=== PATIENT | female | born 1945 | race Caucasian/White ===

== ENCOUNTER 2017-05-06 15:09 | Inpatient (IN) | payer OTHER ==
[~2017-05-06] VITALS: Ht 160 cm; Wt 96.2 kg
[2017-05-06 15:36] LABS: BASO % 0 % (0-3); EOS % 2 % (0-3); HEMATOCRIT 46.2 % (36.0-47.0); HEMOGLOBIN 15.6 g/dL (12.0-15.5); LYMPH # 2.4 x10^3/uL (1.0-4.8); LYMPH % 25 % (24-48); MEAN CORPUSCULAR HEMOGLOBIN 30 pg (25-35); MEAN CORPUSCULAR HGB CONC 34 g/dL (31-37); MEAN CORPUSCULAR VOLUME 88 fL (79-100); MONO % 11 % (0-9); NEUT % 62 % (31-73); PLATELET COUNT 221 x10^3/uL (140-400); RED BLOOD COUNT 5.26 x10^6/uL (3.50-5.40); RED CELL DISTRIBUTION WIDTH 16.1 % (11.5-14.5); WHITE BLOOD COUNT 9.7 x10^3/uL (4.0-11.0)
[2017-05-06 15:51] LABS: CALCIUM 9.3 mg/dL (8.5-10.1); CREATININE 0.7 mg/dL (0.6-1.0); GFR 82.7; POTASSIUM 3.7 mmol/L (3.5-5.1)
--- NOTE | 2017-05-06 15:52 | RAD ---
EXAM: Chest one view. HISTORY: Chest pain. COMPARISON: None. FINDINGS: A frontal view of the chest is obtained. There are no confluent infiltrates. There is no pneumothorax or pleural effusion. The heart is not enlarged. There are atherosclerotic calcifications of the aorta. IMPRESSION: 1. No confluent infiltrates.
--- NOTE | 2017-05-06 15:55 | PHYS DOC ---
Past Medical History Past Medical History: Depression, GERD, High Cholesterol, Other Additional Past Medical Histor: DDD, PRE-DIABETIC, BILATERAL CAROTID ARTERY DISEASE, OA Past Surgical History: Appendectomy, Cholecystectomy, , Hysterectomy, Knee Replacement, Other Additional Past Surgical Histo: PARTIAL THYROID REMOVAL, L ROTATOR CUFF, R SHOULDER, EARDRUM SX Alcohol Use: Occasionally Drug Use: None Adult General Chief Complaint Chief Complaint: CHEST PAIN HPI HPI Patient is a 72 year old female who presents with chest pain that goes to her right shoulder that started on Saturday lasted intermittently all day long she became short of breath with this and diaphoretic. He states yesterday the pain went away and then today has been intermittent again. She's are primary care physician who wanted her to be seen in the emergency department. Here she has some burning sensation again this occurred. She does have a history of smoking and stopped back in 1975. She also has dyslipidemia. And a family history both parents with coronary disease. She's never had a stress test. Review of Systems Review of Systems Constitutional: Denies fever or chills [] Eyes: Denies change in visual acuity, redness, or eye pain [] HENT: Denies nasal congestion or sore throat [] Respiratory: Denies cough or shortness of breath [] Cardiovascular: No additional information not addressed in HPI [] GI: Denies abdominal pain, nausea, vomiting, bloody stools or diarrhea [] : Denies dysuria or hematuria [] Musculoskeletal: Denies back pain or joint pain [] Integument: Denies rash or skin lesions [] Neurologic: Denies headache, focal weakness or sensory changes [] Endocrine: Denies polyuria or polydipsia [] Allergies Allergies Allergies Coded Allergies Type Severity Reaction Last Updated Verified sulfamethoxazole Allergy Mild HIVES 05/06/17 Yes trimethoprim Allergy Mild HIVES 05/06/17 Yes Physical Exam Physical Exam Constitutional: Well developed, well nourished, no acute distress, non-toxic appearance. [] HENT: Normocephalic, atraumatic, bilateral external ears normal, oropharynx moist, no oral exudates, nose normal. [] Eyes: PERRLA, EOMI, conjunctiva normal, no discharge. [] Neck: Normal range of motion, no tenderness, supple, no stridor. [] Cardiovascular:Heart rate regular rhythm, no murmur [] Lungs & Thorax: Bilateral breath sounds clear to auscultation [] Abdomen: Bowel sounds normal, soft, no tenderness, no masses, no pulsatile masses. [] Skin: Warm, dry, no erythema, no rash. [] Back: No tenderness, no CVA tenderness. [] Extremities: No tenderness, no cyanosis, no clubbing, ROM intact, no edema. [] Neurologic: Alert and oriented X 3, normal motor function, normal sensory function, no focal deficits noted. [] Psychologic: Affect normal, judgement normal, mood normal. [] Current Patient Data Vital Signs Vital Signs Date Time Temp Pulse Resp B/P (MAP) Pulse Ox O2 Delivery O2 Flow Rate FiO2 05/06/17 15:30 97.9 67 16 161/86 (111) 98 Room Air 97.9 Lab Values Laboratory Tests Test 05/06/17 15:20 White Blood Count 9.7 x10^3/uL (4.0-11.0) Red Blood Count 5.26 x10^6/uL (3.50-5.40) Hemoglobin 15.6 g/dL (12.0-15.5) H Hematocrit 46.2 % (36.0-47.0) Mean Corpuscular Volume 88 fL (79-100) Mean Corpuscular Hemoglobin 30 pg (25-35) Mean Corpuscular Hemoglobin Concent 34 g/dL (31-37) Red Cell Distribution Width 16.1 % (11.5-14.5) H Platelet Count 221 x10^3/uL (140-400) Neutrophils (%) (Auto) 62 % (31-73) Lymphocytes (%) (Auto) 25 % (24-48) Monocytes (%) (Auto) 11 % (0-9) H Eosinophils (%) (Auto) 2 % (0-3) Basophils (%) (Auto) 0 % (0-3) Neutrophils # (Auto) 6.0 x10^3uL (1.8-7.7) Lymphocytes # (Auto) 2.4 x10^3/uL (1.0-4.8) Monocytes # (Auto) 1.0 x10^3/uL (0.0-1.1) Eosinophils # (Auto) 0.2 x10^3/uL (0.0-0.7) Basophils # (Auto) 0.0 x10^3/uL (0.0-0.2) Prothrombin Time 12.5 SEC (11.7-14.0) Prothrombin Time INR 1.0 (0.8-1.1) Sodium Level 140 mmol/L (136-145) Potassium Level 3.7 mmol/L (3.5-5.1) Chloride Level 103 mmol/L (98-107) Carbon Dioxide Level 27 mmol/L (21-32) Anion Gap 10 (6-14) Blood Urea Nitrogen 17 mg/dL (7-20) Creatinine 0.7 mg/dL (0.6-1.0) Estimated GFR (Cockcroft-Gault) 82.7 Glucose Level 103 mg/dL (70-99) H Calcium Level 9.3 mg/dL (8.5-10.1) Magnesium Level 2.1 mg/dL (1.8-2.4) Total Bilirubin 1.1 mg/dL (0.2-1.0) H Direct Bilirubin 0.2 mg/dL (0.0-0.2) Aspartate Amino Transferase (AST) 18 U/L (15-37) Alanine Aminotransferase (ALT) 26 U/L (14-59) Alkaline Phosphatase 98 U/L (46-116) Creatine Kinase 54 U/L (26-192) Creatine Kinase MB (Mass) 0.5 ng/mL (0.0-3.6) Creatine Kinase MB Relative Index 0.9 % (0-4) Troponin I Quantitative < 0.017 ng/mL (0.000-0.055) RO-Mla-N-Type Natriuretic Peptide 111 pg/mL (0-124) Total Protein 7.9 g/dL (6.4-8.2) Albumin 3.9 g/dL (3.4-5.0) Lipase 192 U/L (73-393) Thyroid Stimulating Hormone (TSH) 0.435 uIU/mL (0.358-3.74) Laboratory Tests 05/06/17 15:20 Laboratory Tests 05/06/17 15:20 EKG EKG EKG shows sinus rhythm rate 66 beats were without any ST elevations or T-wave inversions appreciated, right bundle branch morphology noted, left axis deviation, QTC 457 ms, as interpreted by me. Radiology/Procedures Radiology/Procedures [facility] [address] [place] [address] IMAGING REPORT Signed PATIENT: RODNEY RAMOS ACCOUNT: [id number] : 1945 LOCATION: ER AGE: 72 SEX: F EXAM STATUS: REG ER ORD. PHYSICIAN: ROXANNE BUCKNER MD REASON: chest pain PROCEDURE: PORTABLE CHEST 1V EXAM: Chest one view. HISTORY: Chest pain. COMPARISON: None. FINDINGS: A frontal view of the chest is obtained. There are no confluent infiltrates. There is no pneumothorax or pleural effusion. The heart is not enlarged. There are atherosclerotic calcifications of the aorta. IMPRESSION: 1. No confluent infiltrates. DICTATED and SIGNED BY: BARNEY ROGER MD DATE: 05/06/17 1549 CC: ROXANNE BUCKNER MD; BERTRAND RICE MD ~ Impressions: Chest pain Depression Dyslipidemia Course & Med Decision Making Course & Med Decision Making Pertinent Labs and Imaging studies reviewed. (See chart for details) EKG does not show any acute abnormalities. First set of troponins are negative. Patient is being admitted to Dr. whitt in stable condition at this time. Interim orders have been written. Patient has been given a full dose aspirin. Dragon Disclaimer Dragon Disclaimer This electronic medical record was generated, in whole or in part, using a voice recognition dictation system. Departure Departure Referrals: BERTRAND RICE MD (PCP) ROXANNE BUCKNER MD May 06, 2017 15:54
[2017-05-06 15:58] LABS: PROTHROMBIN TIME PATIENT 12.5 SEC (11.7-14.0)
[2017-05-06 16:00] LABS: ALBUMIN 3.9 g/dL (3.4-5.0); DIRECT BILIRUBIN 0.2 mg/dL (0.0-0.2); MAGNESIUM 2.1 mg/dL (1.8-2.4); TOTAL BILIRUBIN 1.1 mg/dL (0.2-1.0); TOTAL PROTEIN 7.9 g/dL (6.4-8.2)
[2017-05-06 16:01] LABS: CKMB MASS 0.5 ng/mL (0.0-3.6)
--- NOTE | 2017-05-06 16:10 | ACF ---
Admit Criteria Forms Admit Criteria Forms Admit Criteria Forms CHEST PAIN Clinical Indications for Admission to Inpatient Care (Place 'X' for any and all applicable criteria): Admission is indicated for chest pain and ANY ONE of the following(1)(2)(3)(4)(5 ): [ ]I. Angina with acute coronary syndrome (Also use Myocardial Infarction or Angina guideline) [ ]II. Hemodynamic instability [ ]III. Angina needing acute intervention as indicated by ALL of the following( 11)(12): [ ]a) Unstable angina is present as indicated by angina that is ANY ONE of the following: [ ]i) New onset [ ]ii) Nocturnal [ ]iii) Prolonged at rest [ ]iv) Progressive [ ]b) Angina warrants acute intervention as indicated by ANY ONE of the following: [ ]i) Recurrent angina (e.g, not responding as previously to treatment) [ ]ii) Angina at rest or with low-level activities despite initial medical therapy [ ]iii) New or presumably new ST-segment depression on ECG [ ]iv) Signs or symptoms of heart failure (eg, dyspnea, pulmonary edema) [ ]v) New or worsening mitral regurgitation [ ]vi) Hemodynamic instability [ ]vii) Dangerous arrhythmia (eg, sustained ventricular tachycardia) [ ]viii) History of percutaneous coronary intervention within 6 months [ ]ix) History of coronary artery bypass graft surgery [ ]x) ROHINI risk score of 2 or greater[A] [ ]xi) History of Diabetes(14) [ ]xii) High-risk cardiac ischemia findings on noninvasive testing (e.g, echocardiogram, treadmill testing, nuclear scan) [ ]xiii) Chronic renal insufficiency (ie, estimated GFR less than 60 mL/min/1.732m) [ ]xiv) Left ventricular ejection fraction less than 40% [ ]IV. Evidence of NM (eg, cardiac biomarkers positive, ST-segment elevation on ECG) also use Myocardial Infarction Criteria Form. [ ]V. Pulmonary edema [ ]. Respiratory distress [ ]VII. Chest pain indicative of serious diagnosis other than coronary artery disease (eg, aortic dissection) [ ]VIII. Contraindications and/or Inappropriate clinical situations for Observational Care in patients with Chest Pain, when ANY ONE of the following is required: [ ]a) Patient with risk factor for pulmonary embolism, acute coronary syndrome and myocardial infarction (18) [ ]b) Patient with Pulmonary embolism require an average LOS of 4.3 days, therefore emergency department observation management is inappropriate 18,23 [ ]c) Painful condition/s in the elderly, have the highest rate of recidivism after emergency department observation management (10.8%) 20,21,22 [ ]d) Elevated cardiac biomarker requires intensive and exhaustive care (19) [X]IX. General contraindications and/or Inappropriate clinical situations for Observational Care in patients with Chest Pain, when ANY ONE of the following is required: [X]a) Prediction of prolongation of LOS based on ANY ONE of the following may be considered as a contraindication for observational care 2, 3, 4, 5, 6, 7, 8, 9, 10, 11 [X]i) Age > 65 yrs. [ ]ii) Patient arriving by ambulance [ ]iii) Patient with high acuity [ ]iv) Patient requiring vital sign monitoring [ ]v) Patient on IV medication [ ]b) Systolic blood pressures 180mmHg 3,12 [ ]c) Patient with altered mental status including delirium and other alteration of consciousness, (3) [ ]d) Patient whose discharge disposition will be to a residential home or rehabilitation home should not be managed in Emergency Department Observation Unit. CMS rule requires 3 days hospital stay before such placement. 3,13 [ ]e) Patient with failure to thrive due to broad array of etiologies 3,16,17 [ ]f) Inability to ambulate 3,14 Extended stay beyond goal length of stay may be needed for (1)(28): [ ]a) Specific condition diagnosed after evaluation (eg, pulmonary embolism, aortic dissection) [ ]b) Unstable angina [ ]c) Continued suspicion of acute coronary syndrome with inability to complete needed cardiac evaluation (eg, patient clinically unable to undergo stress testing) [ ]d) Myocardial infarction (Contents from ANGINA and CHEST PAIN clinical indications for admission to inpatient care have been integrated in this form) The original [employer] content created by [employer] has been revised. The portions of the content which have been revised are identified through the use of italic text or in bold, and [facility] has neither reviewed nor approved the modified material. All other unmodified content is copyright [facility]. Please see references footnoted in the original [facility] edition 2016 PAUL BESS May 06, 2017 16:10
[2017-05-06] MEDS ORDERED: ASPIRIN 325 MG TABLET PO ONE (17:45)
[2017-05-06] MEDS ORDERED: MORPHINE SULFATE 2 MG/ML DISP.SYRIN. IV PRN (17:45)
[2017-05-06] MEDS ORDERED: ONDANSETRON PF 4 MG/2 ML VIAL. IV PRN (17:45)
[2017-05-06] MEDS ORDERED: NITROGLYCERIN SUBLINGUAL 0.4 MG BOTTLE OF 25. SL PRN (17:45)
[2017-05-06] MEDS ORDERED: SIMV40TA3 PO (18:45)
[2017-05-06] MEDS ORDERED: FLUO40CA2 PO (18:45)
[2017-05-06] MEDS ORDERED: ASPI-482 PO (18:45)
[2017-05-06] MEDS ORDERED: METF500T9 PO (18:45)
[2017-05-06 19:00] VITALS: BP 143/77
--- NOTE | 2017-05-06 20:13 | PDOC1 ---
History and Physical Date of Admission Date of Admission DATE: 05/06/17 TIME: 20:10 Identification/Chief Complaint Chief Complaint chest pain w. nausea Problems: Source Source: Chart review, Patient History of Present Illness History of Present Illness Ms. Inman, is a 72 year old female, admit from ER with chest pain that goes to her right shoulder. New pain, 2 days and intermittent, pain 6/10, and with some nausea and diaphoresis. At times, some shortness of breath. She was sent here by Dr. Santos for above complaints.\ . She's never had a stress test. Past Medical History Cardiovascular: Hyperlipidemia Pulmonary: No pertinent hx GI: No pertinent hx Heme/Onc: No pertinent hx Endocrine: Other (pre-DM) Dermatology: No pertinent hx Family History Family History: Heart Disease (mitral valve repair, both parents) Social History Smoke: Quit ALCOHOL: none Drugs: None Current Medications Current Medications Current Medications Aspirin (Eugene Aspirin) 325 mg 1X ONCE PO Last administered on 05/06/17t 17:52 ; Start 05/06/17 at 17:45; Stop 05/06/17 at 17:46; Status DC Ondansetron HCl (Zofran) 4 mg PRN Q8HRS PRN IV NAUSEA/VOMITING; Start 05/06/17 at 17:45; Stop 05/07/17 at 17:44 Morphine Sulfate 2 mg PRN Q2HR PRN IV PAIN; Start 05/06/17 at 17:45; Stop 05/07 at 17:44 Nitroglycerin (Nitrostat) 0.4 mg PRN Q5MIN PRN SL CHEST PAIN; Start 05/06/17 at 17:45; Stop 05/07/17 at 17:44 Aspirin (Ecotrin) 81 mg DAILY PO ; Start 05/07/17 at 09:00 Metformin HCl (Glucophage Xr) 500 mg DAILYWBKFT PO ; Start 05/07/17 at 08:00 Simvastatin (Zocor) 40 mg HS PO ; Start 05/06/17 at 21:00 Fluoxetine HCl (PROzac) 40 mg DAILY PO ; Start 05/07/17 at 09:00 Active Scripts Active Reported Simvastatin 40 Mg Tablet 40 Mg PO HS Fluoxetine Hcl 40 Mg Capsule 40 Mg PO DAILY at Bed time Metformin Hcl Er (Metformin Hcl) 500 Mg Tab.er.24h 500 Mg PO DAILYWBKFT at Bed time Aspir 81 (Aspirin) 81 Mg Tablet. 1 Tab PO DAILY At bed time Allergies Allergies: Coded Allergies: sulfamethoxazole (Verified Allergy, Mild, HIVES, 05/06/17) trimethoprim (Verified Allergy, Mild, HIVES, 05/06/17) ROS General: No: Chills, Night Sweats, Fatigue, Malaise, Appetite, Other PSYCHOLOGICAL ROS: No: Anxiety, Behavioral Disorder, Concentration difficultie , Decreased libido, Depression, Disorientation, Hallucinations, Hostility, Irritablity, Memory difficulties, Mood Swings, Obsessive thoughts, Physical abuse, Sexual abuse, Sleep disturbances, Suicidal ideation, Other Eyes: No Blurry vision, No Decreased vision, No Double vision, No Dry eyes, No Excessive tearing, No Eye Pain, No Itchy Eyes, No Loss of vision, No Photophobia , No Scotomata, No Uses contacts, No Uses glasses, No Other HEENT: YES: Heacaches, No: Visual Changes, Hearing change, Nasal congestion, Nasal discharge, Oral lesions, Sinus pain, Sore Throat, Epistaxis, Sneezing, Snoring, Tinnitus, Vertigo, Vocal changes, Other Respiratory: YES: SOB with excertion, No: Cough, Hemoptysis, Orthopnea, Pleuritic Pain, Shortness of breath, Sputum Changes, Stridor, Tachypnea, Wheezing, Other Cardiovascular: yes Chest Pain, yes Other, No Palpitations, No Orthopnea, No Paroxysmal Noc. Dyspnea, No Edema, No Lt Headedness Gastrointestinal: Yes Nausea, No Vomiting, No Abdominal Pain, No Diarrhea, No Constipation, No Melena, No Hematochezia, No Other Genitourinary: No Dysuria, No Frequency, No Incontinence, No Hematuria, No Retention, No Discharge, No Urgency, No Pain, No Flank Pain, No Other, No , No , No , No , No , No , No Musculoskeletal: Yes Joint Pain, Yes Joint Stiffness (knees), No Gait Disturbance, No Joint Swelling, No Muscle Pain, No Muscular Weakness , No Pain In:, No Swelling In:, No Other Neurological: No Behavorial Changes, No Bowel/Bladder ControlChng, No Confusion , No Dizziness, No Gait Disturbance, No Headaches, No Impaired Coord/balance, No Memory Loss, No Numbness/Tingling, No Seizures, No Speech Problems, No Tremors, No Visual Changes, No Weakness, No Other Skin: No Dry Skin, No Eczema, No Hair Changes, No Lumps, No Mole Changes, No Mottling, No Nail Changes, No Pruritus, No Rash, No Skin Lesion Changes, No Other, No Acne Physical Exam General: Alert, Oriented X3, Cooperative HEENT: Atraumatic, PERRLA Lungs: Clear to auscultation Abdomen: Normal bowel sounds, Soft (obese) Extremities: No clubbing, No edema, Normal pulses Skin: No significant lesion Neuro: Normal speech, Normal tone, Sensation intact, Cranial nerves 3-12 NL Psych/Mental Status: Mental status NL, Mood NL Vitals Vitals Vital Signs Date Time Temp Pulse Resp B/P (MAP) Pulse Ox O2 Delivery O2 Flow Rate FiO2 05/06/17 17:59 65 20 163/83 (109) 98 Room Air 05/06/17 15:30 97.9 97.9 Labs Labs Laboratory Tests Test 05/06/17 15:20 05/06/17 18:14 White Blood Count 9.7 x10^3/uL (4.0-11.0) Red Blood Count 5.26 x10^6/uL (3.50-5.40) Hemoglobin 15.6 g/dL (12.0-15.5) Hematocrit 46.2 % (36.0-47.0) Mean Corpuscular Volume 88 fL (79-100) Mean Corpuscular Hemoglobin 30 pg (25-35) Mean Corpuscular Hemoglobin Concent 34 g/dL (31-37) Red Cell Distribution Width 16.1 % (11.5-14.5) Platelet Count 221 x10^3/uL (140-400) Neutrophils (%) (Auto) 62 % (31-73) Lymphocytes (%) (Auto) 25 % (24-48) Monocytes (%) (Auto) 11 % (0-9) Eosinophils (%) (Auto) 2 % (0-3) Basophils (%) (Auto) 0 % (0-3) Neutrophils # (Auto) 6.0 x10^3uL (1.8-7.7) Lymphocytes # (Auto) 2.4 x10^3/uL (1.0-4.8) Monocytes # (Auto) 1.0 x10^3/uL (0.0-1.1) Eosinophils # (Auto) 0.2 x10^3/uL (0.0-0.7) Basophils # (Auto) 0.0 x10^3/uL (0.0-0.2) Prothrombin Time 12.5 SEC (11.7-14.0) Prothromb Time International Ratio 1.0 (0.8-1.1) Sodium Level 140 mmol/L (136-145) Potassium Level 3.7 mmol/L (3.5-5.1) Chloride Level 103 mmol/L (98-107) Carbon Dioxide Level 27 mmol/L (21-32) Anion Gap 10 (6-14) Blood Urea Nitrogen 17 mg/dL (7-20) Creatinine 0.7 mg/dL (0.6-1.0) Estimated GFR (Cockcroft-Gault) 82.7 Glucose Level 103 mg/dL (70-99) Calcium Level 9.3 mg/dL (8.5-10.1) Magnesium Level 2.1 mg/dL (1.8-2.4) Total Bilirubin 1.1 mg/dL (0.2-1.0) Direct Bilirubin 0.2 mg/dL (0.0-0.2) Aspartate Amino Transf (AST/SGOT) 18 U/L (15-37) Alanine Aminotransferase (ALT/SGPT) 26 U/L (14-59) Alkaline Phosphatase 98 U/L (46-116) Creatine Kinase 54 U/L (26-192) Creatine Kinase MB (Mass) 0.5 ng/mL (0.0-3.6) Creatine Kinase MB Relative Index 0.9 % (0-4) Troponin I Quantitative < 0.017 ng/mL (0.000-0.055) < 0.017 ng/mL (0.000-0.055) RI-Lsq-D-Type Natriuretic Peptide 111 pg/mL (0-124) Total Protein 7.9 g/dL (6.4-8.2) Albumin 3.9 g/dL (3.4-5.0) Lipase 192 U/L (73-393) Thyroid Stimulating Hormone (TSH) 0.435 uIU/mL (0.358-3.74) Laboratory Tests Test 05/06/17 15:20 05/06/17 18:14 White Blood Count 9.7 x10^3/uL (4.0-11.0) Red Blood Count 5.26 x10^6/uL (3.50-5.40) Hemoglobin 15.6 g/dL (12.0-15.5) Hematocrit 46.2 % (36.0-47.0) Mean Corpuscular Volume 88 fL (79-100) Mean Corpuscular Hemoglobin 30 pg (25-35) Mean Corpuscular Hemoglobin Concent 34 g/dL (31-37) Red Cell Distribution Width 16.1 % (11.5-14.5) Platelet Count 221 x10^3/uL (140-400) Neutrophils (%) (Auto) 62 % (31-73) Lymphocytes (%) (Auto) 25 % (24-48) Monocytes (%) (Auto) 11 % (0-9) Eosinophils (%) (Auto) 2 % (0-3) Basophils (%) (Auto) 0 % (0-3) Neutrophils # (Auto) 6.0 x10^3uL (1.8-7.7) Lymphocytes # (Auto) 2.4 x10^3/uL (1.0-4.8) Monocytes # (Auto) 1.0 x10^3/uL (0.0-1.1) Eosinophils # (Auto) 0.2 x10^3/uL (0.0-0.7) Basophils # (Auto) 0.0 x10^3/uL (0.0-0.2) Prothrombin Time 12.5 SEC (11.7-14.0) Prothromb Time International Ratio 1.0 (0.8-1.1) Sodium Level 140 mmol/L (136-145) Potassium Level 3.7 mmol/L (3.5-5.1) Chloride Level 103 mmol/L (98-107) Carbon Dioxide Level 27 mmol/L (21-32) Anion Gap 10 (6-14) Blood Urea Nitrogen 17 mg/dL (7-20) Creatinine 0.7 mg/dL (0.6-1.0) Estimated GFR (Cockcroft-Gault) 82.7 Glucose Level 103 mg/dL (70-99) Calcium Level 9.3 mg/dL (8.5-10.1) Magnesium Level 2.1 mg/dL (1.8-2.4) Total Bilirubin 1.1 mg/dL (0.2-1.0) Direct Bilirubin 0.2 mg/dL (0.0-0.2) Aspartate Amino Transf (AST/SGOT) 18 U/L (15-37) Alanine Aminotransferase (ALT/SGPT) 26 U/L (14-59) Alkaline Phosphatase 98 U/L (46-116) Creatine Kinase 54 U/L (26-192) Creatine Kinase MB (Mass) 0.5 ng/mL (0.0-3.6) Creatine Kinase MB Relative Index 0.9 % (0-4) Troponin I Quantitative < 0.017 ng/mL (0.000-0.055) < 0.017 ng/mL (0.000-0.055) AR-Urn-K-Type Natriuretic Peptide 111 pg/mL (0-124) Total Protein 7.9 g/dL (6.4-8.2) Albumin 3.9 g/dL (3.4-5.0) Lipase 192 U/L (73-393) Thyroid Stimulating Hormone (TSH) 0.435 uIU/mL (0.358-3.74) VTE Prophylaxis Ordered VTE Prophylaxis Devices: No VTE Pharmacological Prophylaxi: Yes Assessment/Plan Assessment/Plan chest pain, possible angina, consult CV to follow may benefit from stress test hyperlipids obesity, BMI 36 pre-DM2, she reports taking metformin for prevention depression, JOON Santana MD May 06, 2017 20:12
[2017-05-06 20:24] VITALS: BP 143/77
[2017-05-06] MEDS ORDERED: SIMVASTATIN 40 MG TABLET. PO SCH (21:00)
[2017-05-06] MEDS ORDERED: FLUoxetine HCL 20 MG CAPSULE PO SCH (21:30)
[2017-05-06 23:14] VITALS: BP 139/82
[2017-05-07 02:46] VITALS: BP 134/77
[2017-05-07 05:57] LABS: BASO % 0 % (0-3); EOS % 3 % (0-3); HEMATOCRIT 43.3 % (36.0-47.0); HEMOGLOBIN 14.9 g/dL (12.0-15.5); LYMPH % 26 % (24-48); MEAN CORPUSCULAR HEMOGLOBIN 30 pg (25-35); MEAN CORPUSCULAR HGB CONC 34 g/dL (31-37); MEAN CORPUSCULAR VOLUME 86 fL (79-100); MONO % 11 % (0-9); NEUT % 60 % (31-73); PLATELET COUNT 194 x10^3/uL (140-400); RED BLOOD COUNT 5.02 x10^6/uL (3.50-5.40); RED CELL DISTRIBUTION WIDTH 16.1 % (11.5-14.5); WHITE BLOOD COUNT 7.6 x10^3/uL (4.0-11.0)
--- NOTE | 2017-05-07 06:10 | EKG ---
[facility] [address] [place] [address] Test Date: 2017-05-06 Test Time: 15:16:52 Pat Name: RODNEY RAMOS Department: Room: 538 1 Gender: F Carpet Cleaner: : 1945 Requested By: ROXANNE BUCKNER Order Number: [id number] Reading MD: Umer Baxter Measurements Intervals [place] Rate: 66 P: 0 [place]: 164 QRS: -18 QRSD: 130 T: -32 QT: 434 QTc: 457 Interpretive Statements SINUS RHYTHM LEFT ATRIAL ABNORMALITY LEFTWARD AXIS RIGHT BUNDLE BRANCH BLOCK Electronically Signed On 05-07-2017 9:41:23 CDT by Umer Baxter
[2017-05-07 06:11] LABS: CREATININE 0.7 mg/dL (0.6-1.0); GFR 82.7; POTASSIUM 3.9 mmol/L (3.5-5.1)
[2017-05-07 06:26] LABS: CHOLESTEROL/HDL RATIO 3.2
[2017-05-07 07:00] VITALS: BP 144/82
[2017-05-07] MEDS ORDERED: metFORMIN XR 500 MG TAB.ER.24H PO SCH (08:00)
[2017-05-07] MEDS ORDERED: FLUoxetine HCL 20 MG CAPSULE PO SCH ×2 (09:00→21:00)
[2017-05-07] MEDS ORDERED: ASPIRIN ENTERIC COATED 81 MG TABLET.DR. PO SCH (09:00)
--- NOTE | 2017-05-07 09:55 | PDOC2 ---
PHIL CRUMP MANAGER DOMESTIC 05/07/17 0955: CARDIAC CONSULT DATE OF CONSULT Date of Consult DATE: 05/07/17 TIME: 09:39 REASON FOR CONSULT Reason for Consult: Chest pain REFERRING PHYSICIAN Referring Physician: Ernie SOURCE Source: Chart review, Patient HISTORY OF PRESENT ILLNESS HISTORY OF PRESENT ILLNESS This is a pleasant 72 yo female admitted for complains of chest pain. Reports in the last week she has been feeling more fatigue. Saturday, the entire day, she has been having intermittent sensation of mid chest to left chest fullness which sometimes sensation of sharpness. This then would radiate to right arm and feeling of metallic taste. Positive for nausea, feeling clammy and diaphoretic at times. Denies any palpitations or SOA. This happened one time Saturday then again yesterday. She did went to her outpt PCP yesterday and was told to go ahead and go to the hospital. Denies any recent falls, injury. No recent long distance travel. Denies any CAD, arrhythmias. In addition to her symptoms she did start having some heartburn as well Saturday. She does take ASA 81 mg daily but denies any PPI or H2 kamila. use. Denies any routine NSAID therapy. PAST MEDICAL HISTORY Cardiovascular: HTN (med taken off yrs ago since her BP has been better (was on atenolol in the past)), Hyperlipidemia, Other (Carotid artery disease) Pulmonary: No pertinent hx CENTRAL NERVOUS SYSTEM: Carpal Tunnel Syndrome, Other (concussion in the past from fall. ) GI: GERD Heme/Onc: Other (DVT left LLE with anticoagulation therapy post LT1991) Hepatobiliary: No pertinent hx Psych: Anxiety Musculoskeletal: Osteoarthritis Rheumatologic: No pertinent hx Infectious disease: No pertinent hx ENT: Other ([place]FOR[place]K, bilateral ear drum destruction from [place] complications as a child) Renal/: UTI Endocrine: Diabetes (preDM) Dermatology: No pertinent hx PAST SURGICAL HISTORY Past Surgical History: Appendectomy, Arthroscopy (bilateral RTC repair), Cholecystectomy, (x2), Total knee replacement (left), Hysterectomy, Colectomy, Other (Thyroid cyst removal; carpal tunnel repair to right wrist; left hand repair; bilateral ear drum replacement) FAMILY HISTORY Family History: Heart Disease (mitral valve disease, mother and father due to Rheumatic fever) SOCIAL HISTORY Smoke: No (quit in 1977 5 pk yr) ALCOHOL: other (2 shots of rum daily) Drugs: None Lives: with Family CURRENT MEDICATIONS CURRENT MEDICATIONS Current Medications Medications (Trade) Dose Ordered Sig/Maria Luisa Route PRN Reason Start Time Stop Time Status Last Admin Dose Admin Aspirin (Eugene Aspirin) 325 mg 1X ONCE PO 05/06/17 17:45 05/06/17 17:46 DC 05/06/17 17:52 Aspirin (Ecotrin) 81 mg DAILY PO 05/07/17 09:00 05/07/17 09:07 Simvastatin (Zocor) 40 mg HS PO 05/06/17 21:00 05/06/17 20:56 Fluoxetine HCl (PROzac) 40 mg QHS PO 05/06/17 21:30 05/06/17 21:25 ALLERGIES ALLERGIES: Coded Allergies: sulfamethoxazole (Verified Allergy, Mild, HIVES, 05/06/17) trimethoprim (Verified Allergy, Mild, HIVES, 05/06/17) ROS Review of System 14 point ROS evaluated with pertinent positives noted per HPI PHYSICAL EXAM General: Alert, Oriented X3, Cooperative, No acute distress HEENT: Atraumatic, Mucous membr. moist/pink Lungs: Clear to auscultation, Normal air movement Heart: Regular rate (SR with RBBB), Normal S1, Normal S2, Other (2/6 systolic murmur to LLS border) Abdomen: Soft, No tenderness Extremities: No cyanosis, No edema Skin: No breakdown, No significant lesion Neuro: Normal speech, Sensation intact Psych/Mental Status: Mental status NL, Mood NL MUSCULOSKELETAL: Osteoarthritic changes both hands VITALS VITALS Vital Signs Date Time Temp Pulse Resp B/P (MAP) Pulse Ox O2 Delivery O2 Flow Rate FiO2 05/07/17 08:00 Room Air 05/07/17 07:00 97.7 64 17 144/82 (102) 96 97.7 LABS Lab: Laboratory Tests Test 05/06/17 15:20 05/06/17 18:14 05/06/17 20:56 05/07/17 05:30 White Blood Count 9.7 x10^3/uL (4.0-11.0) 7.6 x10^3/uL (4.0-11.0) Red Blood Count 5.26 x10^6/uL (3.50-5.40) 5.02 x10^6/uL (3.50-5.40) Hemoglobin 15.6 g/dL (12.0-15.5) 14.9 g/dL (12.0-15.5) Hematocrit 46.2 % (36.0-47.0) 43.3 % (36.0-47.0) Mean Corpuscular Volume 88 fL (79-100) 86 fL (79-100) Mean Corpuscular Hemoglobin 30 pg (25-35) 30 pg (25-35) Mean Corpuscular Hemoglobin Concent 34 g/dL (31-37) 34 g/dL (31-37) Red Cell Distribution Width 16.1 % (11.5-14.5) 16.1 % (11.5-14.5) Platelet Count 221 x10^3/uL (140-400) 194 x10^3/uL (140-400) Neutrophils (%) (Auto) 62 % (31-73) 60 % (31-73) Lymphocytes (%) (Auto) 25 % (24-48) 26 % (24-48) Monocytes (%) (Auto) 11 % (0-9) 11 % (0-9) Eosinophils (%) (Auto) 2 % (0-3) 3 % (0-3) Basophils (%) (Auto) 0 % (0-3) 0 % (0-3) Neutrophils # (Auto) 6.0 x10^3uL (1.8-7.7) 4.5 x10^3uL (1.8-7.7) Lymphocytes # (Auto) 2.4 x10^3/uL (1.0-4.8) 2.0 x10^3/uL (1.0-4.8) Monocytes # (Auto) 1.0 x10^3/uL (0.0-1.1) 0.8 x10^3/uL (0.0-1.1) Eosinophils # (Auto) 0.2 x10^3/uL (0.0-0.7) 0.2 x10^3/uL (0.0-0.7) Basophils # (Auto) 0.0 x10^3/uL (0.0-0.2) 0.0 x10^3/uL (0.0-0.2) Prothrombin Time 12.5 SEC (11.7-14.0) Prothromb Time International Ratio 1.0 (0.8-1.1) Sodium Level 140 mmol/L (136-145) 142 mmol/L (136-145) Potassium Level 3.7 mmol/L (3.5-5.1) 3.9 mmol/L (3.5-5.1) Chloride Level 103 mmol/L (98-107) 105 mmol/L (98-107) Carbon Dioxide Level 27 mmol/L (21-32) 29 mmol/L (21-32) Anion Gap 10 (6-14) 8 (6-14) Blood Urea Nitrogen 17 mg/dL (7-20) 13 mg/dL (7-20) Creatinine 0.7 mg/dL (0.6-1.0) 0.7 mg/dL (0.6-1.0) Estimated GFR (Cockcroft-Gault) 82.7 82.7 Glucose Level 103 mg/dL (70-99) 103 mg/dL (70-99) Calcium Level 9.3 mg/dL (8.5-10.1) 9.0 mg/dL (8.5-10.1) Magnesium Level 2.1 mg/dL (1.8-2.4) Total Bilirubin 1.1 mg/dL (0.2-1.0) Direct Bilirubin 0.2 mg/dL (0.0-0.2) Aspartate Amino Transf (AST/SGOT) 18 U/L (15-37) Alanine Aminotransferase (ALT/SGPT) 26 U/L (14-59) Alkaline Phosphatase 98 U/L (46-116) Creatine Kinase 54 U/L (26-192) Creatine Kinase MB (Mass) 0.5 ng/mL (0.0-3.6) Creatine Kinase MB Relative Index 0.9 % (0-4) Troponin I Quantitative < 0.017 ng/mL (0.000-0.055) < 0.017 ng/mL (0.000-0.055) < 0.017 ng/mL (0.000-0.055) YZ-Kyt-H-Type Natriuretic Peptide 111 pg/mL (0-124) Total Protein 7.9 g/dL (6.4-8.2) Albumin 3.9 g/dL (3.4-5.0) Lipase 192 U/L (73-393) Thyroid Stimulating Hormone (TSH) 0.435 uIU/mL (0.358-3.74) Glucose (Fingerstick) 99 mg/dL (70-99) Triglycerides Level 159 mg/dL (0-150) Cholesterol Level 168 mg/dL (0-200) LDL Cholesterol, Calculated 84 mg/dL (0-100) VLDL Cholesterol, Calculated 32 mg/dL (0-40) Non-HDL Cholesterol Calculated 116 mg/dL (0-129) HDL Cholesterol 52 mg/dL (40-60) Cholesterol/HDL Ratio 3.2 Test 05/07/17 07:55 Glucose (Fingerstick) 98 mg/dL (70-99) ASSESSMENT/PLAN ASSESSMENT/PLAN 1. Chest pain: mixed features. Likely GERD exacerbation 2. HTN: was taken off atenolol yrs ago. 3. HLP: controlled 4. DM2 vs Pre DM: on home metformin 5. Hx of bilateral carotid artery disease 6. GERD Plan 1. EKG baseline unknown but SR with RBBB. TTE and will completely rule out ischemia with MPI today 2. Continue with daily ASA and will start on PPI 3. If BP remains at high end then will consider for low dose SHEILA/HCTZ combo otherwise continue home BP monitoring. Problems: RONAL NAVA MD 05/08/17 1135: CARDIAC CONSULT ALLERGIES ALLERGIES: Coded Allergies: sulfamethoxazole (Verified Allergy, Mild, HIVES, 05/06/17) trimethoprim (Verified Allergy, Mild, HIVES, 05/06/17) ASSESSMENT/PLAN ASSESSMENT/PLAN Patient seen and examined 05/07/17. Agree with DESIGN ENGINEERING TECHNICIAN's assessment and plan. Chest pain with atypical features and most probably GERD. Myocardial infarction ruled out. 2-D echo showed normal LV systolic function and Lexiscan nuclear stress test did not show any significant ischemia. Agree with proton pump inhibitors. Thank you for your consultation. Problems: PHIL CRUMP APRN May 07, 2017 09:55 RONAL NAVA MD May 08, 2017 11:35
[2017-05-07] MEDS ORDERED: REGADENOSON 0.4 MG/5 ML DISP.SYRIN. IV ONE (10:00)
[2017-05-07 11:00] VITALS: BP 145/73
--- NOTE | 2017-05-07 11:30 | CARD ---
APPROVED REPORT EXAM: Two-dimensional and M-mode echocardiogram with Doppler and color Doppler. Other Information Quality : Good INDICATION Chest Pain 2D DIMENSIONS RVDd2.8 (2.9-3.5cm)Left Atrium(2D)4.1 (1.6-4.0cm) IVSd1.2 (0.7-1.1cm)Aortic Root(2D)3.0 (2.0-3.7cm) LVDd5.5 (3.9-5.9cm)LVOT Diameter2.0 (1.8-2.4cm) PWd1.0 (0.7-1.1cm)LVDs3.2 (2.5-4.0cm) FS (%) 30.0 %SV102.9 ml LVEF(%)60.0 (>50%) Aortic Valve AoV Peak Hi.141.8cm/sAoV VTI24.5cm AO Peak GR.8.0mmHgLVOT Peak Hi.78.4cm/s LVOT VTI 15.92cmAO Mean GR.4mmHg STEPHEN (VMAX)1.89gc8OPF (VTI)2.13cm2 AI P 1/2 Opqw727pn Mitral Valve MV E Aqvpydkf99.7cm/sMV DECEL [id number] MV A Eubmokbu99.4cm/sMV MZL24yv E/A Ratio0.7MVA (PHT)3.12cm2 TDI E/Lateral E'7.0E/Medial E'10.1 Tricuspid Valve TR P. Khmbaxfw733gs/sRAP FAICNVGN3osJv TR Peak Gr.97jsFrAMTE59vdLa Pulmonary Vein S1 Eyslnanb61.2cm/sD2 Pkgpvdtr26.5cm/s PVa [id number] LEFT VENTRICLE The left ventricle is normal size. There is mild asymmetric septal left ventricular hypertrophy. The left ventricular systolic function is normal and the ejection fraction is within normal range. The Ej ection Fraction is 55-60%. There is grossly normal LV wall motion. Segmental wall motion cannot be ac curately delineated due to suboptimal images. Transmitral Doppler flow pattern is Grade I-abnormal re laxation pattern. RIGHT VENTRICLE The right ventricle is normal size. The right ventricular systolic function is normal. ATRIA The left atrium is mildly dilated. The right atrium size is normal. The interatrial septum is intact with no evidence for an atrial septal defect or patent foramen ovale as noted on 2-D or Doppler imagi ng. AORTIC VALVE The aortic valve is sclerotic and trileaflet. Doppler and Color Flow revealed mild aortic regurgitati on. There is no significant aortic valvular stenosis. MITRAL VALVE The mitral valve is thickened, cannot rule out partially ruptured chordae. There is no evidence of mi tral valve prolapse. There is no mitral valve stenosis. Doppler and Color-flow revealed trace mitral regurgitation. TRICUSPID VALVE The tricuspid valve is normal in structure and function. Doppler and Color Flow revealed physiologica l tricuspid regurgitation. The PA pressure was estimated at 27 mmHg. There is no tricuspid valve sten osis. PULMONIC VALVE Doppler and Color Flow revealed no pulmonic valvular regurgitation. There is no pulmonic valvular karsten nosis. GREAT VESSELS The aortic root is normal in size. The ascending aorta is normal in size. The IVC is normal in size a nd collapses >50% with inspiration. PERICARDIAL EFFUSION There is no evidence of significant pericardial effusion. Critical Notification Critical Value: No <Conclusion> The left ventricular systolic function is normal and the ejection fraction is within normal range. Th e Ejection Fraction is 55-60%. There is grossly normal LV wall motion. Segmental wall motion cannot be accurately delineated due to suboptimal images. Doppler and Color Flow revealed mild aortic regurgitation.
[2017-05-07] MEDS ORDERED: FAMOTIDINE 20 MG TABLET. PO ONE (13:00)
[2017-05-07] MEDS ORDERED: BISMUTH SUBSALICYLATE 262 MG/15 ML ORAL.SUSP 236ML BOTTLE. PO PRN (13:00)
--- NOTE | 2017-05-07 13:19 | RAD ---
APPROVED REPORT Test Type: Pharmacological Stress Nurse/Tech: Zakia Escalante R.N. Test Indications: chest pain Cardiac History: Family history, Diabetes, RBBB Medications: See Electronic Medical Record Medical History: See Electronic Medical Record Resting ECG: NSR with RBBB Resting Heart Rate: 68 bpm Resting Blood Pressure: 157/85mmHg Pretest Chest Pain: No chest pain Nurse/Tech Notes S1S2, lungs sound clear Consent: The procedure was explained to the patient in lay terms. Informed consent was witnessed. Sherman eout was entered into [email or web address]. History and Stress Test performed by Zakia Escalante R.N. Pharm. Details Pharmacologic stress testing was performed using 0.4mg per 5ml of regadenoson given intravenously ove r 7-10 seconds. Stress Symptoms Dyspnea POST EXERCISE Reason for Termination: Infusion complete Max HR: 97 bpm Max Blood Pressure: 160/85mmHg Blood Pressure response to exercise: Normal blood pressure response during stress. Chest Pain: No. Arrhythmia: No. ST Change: No. INTERPRETATION Stress EKG Conclusion: No evidence of stress induced EKG changes. Imaging Protocol IMAGE PROTOCOL: Stress Tc-99m/rest Tc-99m 2 days Rest: Stress: Viability: Radiopharm.Tc99m Sestamibi [id number] Duration 12min. Img Date 05/07/2017 Inj-Img [id number]. Stress Admin Site: IV - Left AntecubitalAdministrator: Mable Flores, RT (R)(N) STRESS DATA End Diast. Vol.121.0mlAv. Heart Rate81.0bpm End Syst. Vol.39.0mlCO Index BSA0.0L/min Myocardial Whlh355.0gEject. Cysjjphp13.0% Stress Rates Pk. Fill Rate3.56EDV/secLVtime Pk. Fill 193.80msec Pk. Empty Rate4.32ESV/secLVtime Pk. Mkftc806.07msec 11/27 Pk. Fill1.10EDV/sec Stress Scores Regional WT0.00Summed WT2.00 Regional WM0.00Summed WM0.00 LV Perfusion Normal perfusion at stress. Wall Motion Normal wall motion. LV Perf. Quant 17 Seg. SSS3.00 Stress Defect Extent (% LAD)3.80Rest Defect Extent (% LAD)Rev. Defect Extent (% LAD)0.00 Stress Defect Extent (% LCX) 0.00Rest Defect Extent (% LCX)Rev. Defect Extent (% LCX)0.00 Stress Defect Extent (% RCA)0.00Rest Defect Extent (% RCA)Rev. Defect Extent (% RCA)0.00 Stress Defect Extent (% LANDON)2.40Rest Defect Extent (% LANDON)Rev. Defect Extent (% LANDON)0.00 Other Information Quality:Good Risk Assessment: Low Risk Conclusion 1. No evidence of stress induced EKG changes. 2. Normal perfusion at stress. 3. Low risk study. EF 65%.
[2017-05-07] MEDS ORDERED: FAMO-63 PO (13:30)
[2017-05-07 15:00] VITALS: BP 135/86
[2017-05-08] MEDS ORDERED: PANTOPRAZOLE 40 MG TABLET.DR. PO SCH (07:30)
== END 2017-05-07 16:00 | disposition home or self-care (01) | DRG 311 ==
LOC: ER 15:09 → 5 NORTH 16:20 → OBSVTOIN 16:20
PROVIDERS: ADMIT Internal Medicine; ATTEND Internal Medicine
DX: I20.8 Other forms of angina pectoris (principal); K21.9 Gastro-esophageal reflux disease without esophagitis; I10 Essential (primary) hypertension; Z68.36 Body mass index [BMI] 36.0-36.9, adult; F32.9 Major depressive disorder, single episode, unspecified; E78.5 Hyperlipidemia, unspecified; E66.9 Obesity, unspecified; E11.9 Type 2 diabetes mellitus without complications; Z96.652 Presence of left artificial knee joint; F41.9 Anxiety disorder, unspecified; G56.00 Carpal tunnel syndrome, unspecified upper limb; M19.90 Unspecified osteoarthritis, unspecified site; Z87.440 Personal history of urinary (tract) infections; Z87.891 Personal history of nicotine dependence; Z79.82 Long term (current) use of aspirin; Z87.820 Personal history of traumatic brain injury; Z88.2 Allergy status to sulfonamides; Z88.1 Allergy status to other antibiotic agents; Z90.49 Acquired absence of other specified parts of digestive tract; Z90.710 Acquired absence of both cervix and uterus; Z82.49 Family history of ischemic heart disease and other diseases of the circulatory system
CPT/HCPCS: 36415; 71010; 78452; 80048; 80061; 80076; 82553; 82962; 83036; 83690; 83735; 83880; 84443; 84484; 85027; 85610; 93005; 93017; 93306; 96374; 96375; A9500; J2785; 99285-25